=== PATIENT | male | born 1950 | race Caucasian/White ===

== ENCOUNTER 2016-06-30 17:33 | Inpatient (IN) | payer OTHER ==
[2016-06-30] MEDS ORDERED: XANAX0.5 M1 PO (18:11)
[2016-06-30] MEDS ORDERED: PROVENTIL HFA6.7 G1 INH (18:11)
[2016-06-30] MEDS ORDERED: NORVASC10 M2 PO (18:12)
[2016-06-30] MEDS ORDERED: ASPIRIN EC81 MG PO (18:12)
[2016-06-30] MEDS ORDERED: DEPAKOTE500 M1 PO (18:12)
[2016-06-30] MEDS ORDERED: VIMPAT100 M1 PO (18:13)
[2016-06-30] MEDS ORDERED: ADVAIR 25028 BLISTE1 INH (18:13)
[2016-06-30] MEDS ORDERED: CLARITIN10 M8 PO (18:13)
[2016-06-30] MEDS ORDERED: LEXAPRO20 M2 PO (18:13)
[2016-06-30] MEDS ORDERED: LOVASTATIN20 M2 PO (18:14)
[2016-06-30] MEDS ORDERED: GLUCOPHAGE1000 M1 PO (18:14)
[2016-06-30] MEDS ORDERED: MULTIVITAMINS1 EAC6 PO (18:14)
[2016-06-30] MEDS ORDERED: SPIRIVA RESPIMAT4 G1 INH (18:15)
[2016-06-30] MEDS ORDERED: ALBUTEROL2.5 MG/3 M AERO NEB (19:25)
[2016-06-30] MEDS ORDERED: BROVANA15 MCG/22 INH (19:25)
[2016-06-30] MEDS ORDERED: PULMICORT0.5 MG/22 AERO NEB (19:26)
[2016-06-30] MEDS ORDERED: DIPHENHYDR50 MG/1 M2 IV (19:28)
[2016-06-30] MEDS ORDERED: FUROSEMIDE10 MG/1 M2 IV (19:29)
[2016-06-30] MEDS ORDERED: NOVOLOG100 UNIT/2 SC (19:30)
[2016-06-30] MEDS ORDERED: IPRAT-ALBUT 0.5-3 ML INH (19:31)
[2016-06-30] MEDS ORDERED: MAGNESIUM2 GM/50 ML IV (19:32)
[2016-06-30] MEDS ORDERED: MAGNESIUM4 GM/100 M IV (19:33)
[2016-06-30] MEDS ORDERED: MEPERIDINE IV (19:34)
[2016-06-30] MEDS ORDERED: [UNRECOGNIZED DRUG - OTHER] IV (19:35)
[2016-06-30] MEDS ORDERED: METOPROLOL5 MG/5 M2 IV (19:36)
[2016-06-30] MEDS ORDERED: MORPHINE 110 MG/10 M IV (19:37)
[2016-06-30] MEDS ORDERED: NALOXONE H0.4 MG/1 M IV (19:38)
[2016-06-30] MEDS ORDERED: PROTONIX IV40 MG IV (19:39)
[2016-06-30] MEDS ORDERED: ONDANSETRON IV (19:39)
[2016-06-30] MEDS ORDERED: ZOSYN 3.3753.375 GM IV (19:40)
[2016-06-30] MEDS ORDERED: POTASSIUM20 MEQ/101 IV (19:42)
[2016-06-30] MEDS ORDERED: VALPROATE IV (19:43)
[2016-06-30 19:58] LABS: BASO % 0.2 % (0-2); EOS % 1.2 % (0-7); EOSINOPHIL ABSOLUTE COUNT 0.1 tho/cmm (0.0-0.7); HCT-HEMATOCRIT 29.7 % (36.0-53.5); HGB-HEMOGLOBIN 9.7 gm/dl (13.5-17.0); IMMATURE GRANULOCYTES ABSOLUTE 0.03 tho/cmm (0-0.03); IMMATURE GRANULOCYTES PERCENT 0.7 % (0-0.3); LYMPH % 16.1 % (20-45); LYMPH ABSOLUTE COUNT 0.7 tho/cmm (0.8-4.5); MCH (MEAN CORPUSCULAR HGB) 30.1 pg (28.0-32.0); MCHC MEAN CORPUSCULAR HGB CONC 32.7 % (32.0-36.0); MCV (MEAN CELL VOLUME) 92.2 fl (82.0-96.0); MEAN PLATELET VOLUME 9.2 cmc (9.4-12.4); MONO % 11.5 % (0-12); MONOCYTE ABSOLUTE COUNT 0.5 tho/cmm (0.0-1.2); NEUTROPHIL ABSOLUTE COUNT 2.9 tho/cmm (1.6-8.0); NEUTROPHIL-AUTOMATED 2.9 tho/cmm (1.6-8.0); NEUTROPHILS % 70.3 % (40-80); PLATELET COUNT 156 tho/cmm (150-450); RED BLOOD COUNT 3.22 mil/cmm (4.40-5.70); RED CELL DISTRIBUTION WIDTH 17.3 % (12.4-16.4); WHITE BLOOD COUNT 4.1 tho/cmm (4.0-10.0)
[2016-07-01 00:02] LABS: ANION GAP 11 mmol/L (0-20); BLOOD UREA NITROGEN 23 mg/dl (6-24); CARBON DIOXIDE-VENOUS 34 mmol/L (22-32); CHLORIDE 99 mmol/l (96-110); CREATININE 1.15 mg/dl (0.60-1.30); GLUCOSE 127 mg/dL (70-110); MAGNESIUM 2.6 mg/dl (1.3-2.6); POTASSIUM 3.3 mmol/L (3.7-5.1); SODIUM 141 mmol/L (135-145); eGFR VALUE FOR BLACK 78 mL/Min
[2016-07-01 03:46] LABS: BASO % 0.2 % (0-2); EOSINOPHIL ABSOLUTE COUNT 0.1 tho/cmm (0.0-0.7); HCT-HEMATOCRIT 28.4 % (36.0-53.5); HGB-HEMOGLOBIN 9.2 gm/dl (13.5-17.0); IMMATURE GRANULOCYTES ABSOLUTE 0.05 tho/cmm (0-0.03); MCH (MEAN CORPUSCULAR HGB) 30.1 pg (28.0-32.0); MCHC MEAN CORPUSCULAR HGB CONC 32.4 % (32.0-36.0); MCV (MEAN CELL VOLUME) 92.8 fl (82.0-96.0); MEAN PLATELET VOLUME 9.4 cmc (9.4-12.4); PLATELET COUNT 171 tho/cmm (150-450); RED BLOOD COUNT 3.06 mil/cmm (4.40-5.70); RED CELL DISTRIBUTION WIDTH 17.3 % (12.4-16.4); WHITE BLOOD COUNT 4.6 tho/cmm (4.0-10.0)
[2016-07-01 04:03] LABS: EOS % 1.6 % (0-7); IMMATURE GRANULOCYTES PERCENT 0.9 % (0-0.3); LYMPH % 11.4 % (20-45); LYMPH ABSOLUTE COUNT 0.5 tho/cmm (0.8-4.5); MONO % 20.2 % (0-12); MONOCYTE ABSOLUTE COUNT 0.9 tho/cmm (0.0-1.2); NEUTROPHILS % 65.7 % (40-80)
[2016-07-01 04:40] LABS: ANION GAP 9 mmol/L (0-20); BLOOD UREA NITROGEN 24 mg/dl (6-24); CALCIUM 8.5 mg/dl (8.5-10.5); CARBON DIOXIDE-VENOUS 36 mmol/L (22-32); CHLORIDE 99 mmol/l (96-110); CREATININE 1.17 mg/dl (0.60-1.30); GLUCOSE 119 mg/dL (70-110); POTASSIUM 3.4 mmol/L (3.7-5.1); SODIUM 141 mmol/L (135-145); eGFR VALUE FOR BLACK 76 mL/Min
[2016-07-03 18:20] LABS: URINE BILIRUBIN NEGATIVE (NEG); URINE BLOOD LARGE (NEG); URINE GLUCOSE (UA) NEGATIVE (NEG); URINE KETONE NEGATIVE (NEG); URINE LEUKOCYTE ESTERASE POSITIVE (NEG); URINE NITRITE NEGATIVE (NEG); URINE PROTEIN MODERATE (NEG)
[2016-07-03 18:22] LABS: URINE APPEARANCE HAZY; URINE COLOR YELLOW
[2016-07-03 18:23] LABS: URINE AMORPHOUS 1+; URINE EPITHELIAL CELLS 0 /[HPF] (0-10); URINE RBC RARE /[HPF] (0-5); URINE WBC 0 /[HPF] (0-5)
[2016-07-04 06:04] LABS: BASO % 0.1 % (0-2); EOS % 1.4 % (0-7); EOSINOPHIL ABSOLUTE COUNT 0.1 tho/cmm (0.0-0.7); HCT-HEMATOCRIT 30.5 % (36.0-53.5); HGB-HEMOGLOBIN 9.5 gm/dl (13.5-17.0); IMMATURE GRANULOCYTES ABSOLUTE 0.11 tho/cmm (0-0.03); IMMATURE GRANULOCYTES PERCENT 1.6 % (0-0.3); LYMPH % 12.2 % (20-45); LYMPH ABSOLUTE COUNT 0.9 tho/cmm (0.8-4.5); MCH (MEAN CORPUSCULAR HGB) 30.1 pg (28.0-32.0); MCHC MEAN CORPUSCULAR HGB CONC 31.1 % (32.0-36.0); MCV (MEAN CELL VOLUME) 96.5 fl (82.0-96.0); MEAN PLATELET VOLUME 9.9 cmc (9.4-12.4); MONO % 11.6 % (0-12); MONOCYTE ABSOLUTE COUNT 0.8 tho/cmm (0.0-1.2); NEUTROPHIL ABSOLUTE COUNT 5.1 tho/cmm (1.6-8.0); NEUTROPHIL-AUTOMATED 5.1 tho/cmm (1.6-8.0); NEUTROPHILS % 73.1 % (40-80); PLATELET COUNT 210 tho/cmm (150-450); RED BLOOD COUNT 3.16 mil/cmm (4.40-5.70); RED CELL DISTRIBUTION WIDTH 15.9 % (12.4-16.4)
[2016-07-04 06:09] LABS: ANION GAP 10 mmol/L (0-20); BLOOD UREA NITROGEN 15 mg/dl (6-24); CALCIUM 8.2 mg/dl (8.5-10.5); CARBON DIOXIDE-VENOUS 35 mmol/L (22-32); CHLORIDE 99 mmol/l (96-110); GLUCOSE 132 mg/dL (70-110); SODIUM 140 mmol/L (135-145); eGFR VALUE FOR BLACK >90 mL/Min
[2016-07-04 08:43] LABS: ABG CO2 ARTERIAL 38 mmol/L (21-27); ARTERIAL BLD GAS O2 SATURATION 99 % (95-98); ARTERIAL PO2 140 mmHg (70-100); BICARBONATE 35 mmol/L (21-28); BLOOD GAS BASE EXCESS 7 mM/L (-/+3); PH 7.28 Units (7.35-7.45)
[2016-07-04 08:48] LABS: ARTERIAL BLOOD GAS PCO2 79 mmHg (32-45)
[2016-07-06 11:01] LABS: ARTERIAL BLD GAS O2 SATURATION 95 % (95-98); ARTERIAL BLOOD GAS PCO2 51 mmHg (32-45); ARTERIAL PO2 70 mmHg (70-100); BICARBONATE 38 mmol/L (21-28); BLOOD GAS BASE EXCESS 13 mM/L (-/+3); PH 7.49 Units (7.35-7.45)
[2016-07-06 11:02] LABS: HCT-HEMATOCRIT 29.7 % (36.0-53.5); HGB-HEMOGLOBIN 9.7 gm/dl (13.5-17.0); MCH (MEAN CORPUSCULAR HGB) 30.3 pg (28.0-32.0); MCHC MEAN CORPUSCULAR HGB CONC 32.7 % (32.0-36.0); MCV (MEAN CELL VOLUME) 92.8 fl (82.0-96.0); MEAN PLATELET VOLUME 9.8 cmc (9.4-12.4); NEUTROPHIL-AUTOMATED 5.9 tho/cmm (1.6-8.0); PLATELET COUNT 249 tho/cmm (150-450); RED CELL DISTRIBUTION WIDTH 15.3 % (12.4-16.4); WHITE BLOOD COUNT 8.4 tho/cmm (4.0-10.0)
[2016-07-06 11:04] LABS: ABG CO2 ARTERIAL 40 mmol/L (21-27)
[2016-07-06 14:07] LABS: BAND % 3 % (0-20); BAND ABSOLUTE COUNT 0.3 tho/cmm (0-2.0)
[2016-07-06 15:23] LABS: ANION GAP 12 mmol/L (0-20); BLOOD UREA NITROGEN 13 mg/dl (6-24); CALCIUM 8.4 mg/dl (8.5-10.5); CARBON DIOXIDE-VENOUS 37 mmol/L (22-32); CHLORIDE 95 mmol/l (96-110); CREATININE 1.06 mg/dl (0.60-1.30); GLUCOSE 150 mg/dL (70-110); SODIUM 141 mmol/L (135-145); eGFR VALUE FOR BLACK 86 mL/Min
[2016-07-06 15:25] LABS: POTASSIUM 2.8 mmol/L (3.7-5.1)
[2016-07-08 11:18] LABS: ABG CO2 ARTERIAL 36 mmol/L (21-27); ARTERIAL BLD GAS O2 SATURATION 88 % (95-98); ARTERIAL BLOOD GAS PCO2 45 mmHg (32-45); ARTERIAL PO2 54 mmHg (70-100); BICARBONATE 35 mmol/L (21-28); BLOOD GAS BASE EXCESS 10 mM/L (-/+3)
[2016-07-08] MEDS ORDERED: AMIODARONE HCL200 M1 PO (16:41)
[2016-07-08] MEDS ORDERED: NORCO 5-325 TA1 EACH PO (16:44)
[2016-07-08] MEDS ORDERED: FLOMAX0.4 M1 PO (16:59)
[2016-07-08] MEDS ORDERED: LASIX40 M1 PO (17:00)
[2016-07-08] MEDS ORDERED: LEVAQUIN750 M1 PO (17:01)
[2016-07-08] MEDS ORDERED: K-TAB ER20 ME1 PO (17:01)
[2016-07-08] MEDS ORDERED: MUCINEX600 M1 PO (17:02)
[2016-07-08] MEDS ORDERED: METOPROLOL TART25 M1 PO (17:03)
== END 2016-07-08 18:20 | DRG 164 ==
LOC: PCUA 17:33 → ORW 07-02 16:19 → PACU 07-02 17:21 → PCUA 07-02 18:50
PROVIDERS: Internal Medicine Critical Care Medicine; Internal Medicine Pulmonary Disease; Physician Assistant Medical; Urology; ADMIT Surgery
PROC: 3E0F7GC Introduction of Other Therapeutic Substance into Respiratory Tract, Via Natural or Artificial Opening (ICD-10-PCS; 2016-06-30)
PROC: 0BJ08ZZ Inspection of Tracheobronchial Tree, Via Natural or Artificial Opening Endoscopic (ICD-10-PCS; 2016-07-02)
PROC: 0WCB4ZZ Extirpation of Matter from Left Pleural Cavity, Percutaneous Endoscopic Approach (ICD-10-PCS; 2016-07-02)
PROC: 0BDP4ZZ Extraction of Left Pleura, Percutaneous Endoscopic Approach (ICD-10-PCS; 2016-07-02)
PROC: 0B978ZX Drainage of Left Main Bronchus, Via Natural or Artificial Opening Endoscopic, Diagnostic (ICD-10-PCS; principal; 2016-07-04)
PROC: 0BCB8ZZ Extirpation of Matter from Left Lower Lobe Bronchus, Via Natural or Artificial Opening Endoscopic (ICD-10-PCS; 2016-07-07)
DX: J95.89 Other postprocedural complications and disorders of respiratory system, not elsewhere classified (principal); J94.2 Hemothorax; J38.00 Paralysis of vocal cords and larynx, unspecified; I48.0 Paroxysmal atrial fibrillation; C34.90 Malignant neoplasm of unspecified part of unspecified bronchus or lung; R13.10 Dysphagia, unspecified; J44.9 Chronic obstructive pulmonary disease, unspecified; J98.11 Atelectasis; J98.6 Disorders of diaphragm; R09.02 Hypoxemia; G40.909 Epilepsy, unspecified, not intractable, without status epilepticus; I10 Essential (primary) hypertension; E11.9 Type 2 diabetes mellitus without complications; E78.5 Hyperlipidemia, unspecified; E87.6 Hypokalemia; I25.10 Atherosclerotic heart disease of native coronary artery without angina pectoris; K21.9 Gastro-esophageal reflux disease without esophagitis; R33.9 Retention of urine, unspecified; F17.210 Nicotine dependence, cigarettes, uncomplicated; J94.1 Fibrothorax
CPT/HCPCS: C9113; J0282; J1650; J1815; J1940; J2250; J2270; J2543; J3010; J3475; J3480; J7030; J7040; J7050